=== PATIENT | female | born 1975 | race Two or more races ===

== ENCOUNTER 2021-08-11 13:56 | Emergency (ER) | payer OTHER ==
[~2021-08-11] VITALS: Ht 154.9 cm; Wt 72.6 kg
[2021-08-11] MEDS ORDERED: POLY33504 PO (15:17)
[2021-08-11 15:22] VITALS: BP 122/65
== END 2021-08-11 16:52 | disposition home or self-care (01) ==
LOC: ER 13:56 → EDBD 13:56 → ER 16:52
DX: R55 Syncope and collapse (principal); K59.00 Constipation, unspecified